=== PATIENT | male | born 1965 | race Two or more races ===

== ENCOUNTER 2017-07-19 15:34 | Emergency (ER) | payer MEDICAID ==
[~2017-07-19] VITALS: Ht 167.6 cm; Wt 50.0 kg
[2017-07-19] MEDS ORDERED: OLAN15TA3 PO (15:49)
[2017-07-19 16:43] LABS: EOSINOPHILS % 2.7 % (0.0-5.0); HEMATOCRIT. 42.9 % (42.0-52.0); HEMOGLOBIN. 14.8 g/dL (14.0-18.0); MEAN CORPUSCULAR HEMOGLOBIN 34.1 pg (28.0-32.0); MEAN CORPUSCULAR VOLUME 98.9 fL (80.0-94.0); MEAN PLATELET VOLUME 7.1 fl (7.4-10.4); MONOCYTES % 7.4 % (2.0-8.0); NEUTROPHILS % 69.9 % (40.0-76.0); PLATELET 367 x1000/uL (130-400); RED BLOOD CELL COUNT 4.34 mill/uL (4.7-6.1); RED CELL DISTRIBUTION WIDTH 13.2 % (11.6-14.6)
[2017-07-19 16:50] LABS: CHLORIDE 105 mEq/L (98-107)
[2017-07-19 16:52] LABS: CARBON DIOXIDE 29 mEq/L (21-32)
[2017-07-19 16:53] LABS: ETHANOL BLOOD < 10 mg/dL
[2017-07-19 17:08] LABS: *AMPHETAMINES SCREEN URINE NEGATIVE (NEGATIVE); *BARBITURATES SCREEN URINE NEGATIVE (NEGATIVE); *BENZODIAZEPINES SCREEN URINE NEGATIVE (NEGATIVE); *COCAINE SCREEN URINE NEGATIVE (NEGATIVE); CANNABINOID URINE SCREEN NEGATIVE (NEGATIVE); METHADONE URINE SCREEN NEGATIVE (NEGATIVE); OPIATES URINE SCREEN NEGATIVE (NEGATIVE); PHENCYCLIDINE URINE SCREEN NEGATIVE (NEGATIVE)
[2017-07-19 17:38] VITALS: BP 128/81
[2017-07-19] MEDS ORDERED: DIPHENHYDRAMINE 25MG CAPSULE PO ONE (19:00)
== END 2017-07-20 07:00 | disposition left against medical advice (07) ==
LOC: ER 15:52
DX: R44.0 Auditory hallucinations (principal)
CPT/HCPCS: 36415; 80048; 80305; 80307; 80329; 85025; 99284; G0482; Q0163

== ENCOUNTER 2017-11-09 18:12 | Emergency (ER) | payer MEDICAID, OTHER ==
[~2017-11-09] VITALS: Ht 165.1 cm; Wt 63.0 kg
[~2017-11-09 18:12] MED LIST: OLAN15TA3 PO
[2017-11-09 21:12] LABS: BASOPHILS % 0.7 % (0.0-2.0); EOSINOPHILS % 3.6 % (0.0-5.0); HEMATOCRIT. 42.3 % (42.0-52.0); HEMOGLOBIN. 14.4 g/dL (14.0-18.0); LYMPHOCYTES % 15.1 % (20.0-50.0); MEAN CORPUSCULAR VOLUME 96.9 fL (80.0-94.0); MEAN PLATELET VOLUME 7.9 fl (7.4-10.4); MONOCYTES % 6.1 % (2.0-8.0); NEUTROPHILS % 74.5 % (40.0-76.0); PLATELET 243 x1000/uL (130-400); RED BLOOD CELL COUNT 4.36 mill/uL (4.7-6.1); RED CELL DISTRIBUTION WIDTH 13.9 % (11.6-14.6)
[2017-11-09 21:24] LABS: CHLORIDE 104 mEq/L (98-107); ETHANOL BLOOD < 10 mg/dL
[2017-11-09 21:32] LABS: CLARITY URINE CLEAR (CLEAR); COLOR URINE YELLOW (YELLOW); KETONES URINE NEGATIVE (NEGATIVE); LEUKOCYTE ESTERASE URINE NEGATIVE (NEGATIVE); NITRITE URINE NEGATIVE (NEGATIVE); OCCULT BLOOD URINE NEGATIVE (NEGATIVE); PROTEIN URINE NEGATIVE (NEGATIVE); UROBILINOGEN URINE 0.2 E.U./dL (0.2-1.0)
[2017-11-09 21:47] LABS: *AMPHETAMINES SCREEN URINE NEGATIVE (NEGATIVE); *BARBITURATES SCREEN URINE NEGATIVE (NEGATIVE); *BENZODIAZEPINES SCREEN URINE NEGATIVE (NEGATIVE); *COCAINE SCREEN URINE NEGATIVE (NEGATIVE); CANNABINOID URINE SCREEN NEGATIVE (NEGATIVE); METHADONE URINE SCREEN NEGATIVE (NEGATIVE); OPIATES URINE SCREEN NEGATIVE (NEGATIVE); PHENCYCLIDINE URINE SCREEN NEGATIVE (NEGATIVE)
[2017-11-10] MEDS ORDERED: OLANZAPINE 10 MG/VIAL IM ONE (05:45)
[2017-11-10] MEDS ORDERED: OLANZAPINE 10MG TABLET PO SCH ×2 (05:45→21:00)
[2017-11-10 13:35] VITALS: BP 117/76
== END 2017-11-10 13:50 | disposition home or self-care (01) ==
LOC: ER 18:12
DX: M25.561 Pain in right knee (principal); M25.562 Pain in left knee; R45.851 Suicidal ideations; F20.9 Schizophrenia, unspecified; F32.9 Major depressive disorder, single episode, unspecified; F17.200 Nicotine dependence, unspecified, uncomplicated; F31.9 Bipolar disorder, unspecified
CPT/HCPCS: 36415; 73562; 80053; 80305; 80307; 80329; 81003; 85025; 99285; G0482

== ENCOUNTER 2017-11-12 09:24 | Emergency (ER) | payer OTHER ==
[~2017-11-12] VITALS: Ht 167.6 cm; Wt 46.0 kg
[2017-11-12 10:43] LABS: BASOPHILS % 0.8 % (0.0-2.0); EOSINOPHILS % 6.8 % (0.0-5.0); HEMATOCRIT. 44.3 % (42.0-52.0); HEMOGLOBIN. 14.8 g/dL (14.0-18.0); LYMPHOCYTES % 21.2 % (20.0-50.0); MEAN CORPUSCULAR HEMOGLOBIN 32.3 pg (28.0-32.0); MEAN CORPUSCULAR VOLUME 96.4 fL (80.0-94.0); MEAN PLATELET VOLUME 8.4 fl (7.4-10.4); MONOCYTES % 7.4 % (2.0-8.0); NEUTROPHILS % 63.8 % (40.0-76.0); PLATELET 225 x1000/uL (130-400); RED CELL DISTRIBUTION WIDTH 13.6 % (11.6-14.6)
[2017-11-12 10:54] LABS: CHLORIDE 103 mEq/L (98-107); ETHANOL BLOOD < 10 mg/dL
[2017-11-12] MEDS: LORAZEPAM 0.5MG TABLET PO ONE (11:30)
[2017-11-12 13:50] VITALS: BP 110/78
[2017-11-12 13:52] LABS: *AMPHETAMINES SCREEN URINE NEGATIVE (NEGATIVE); *BARBITURATES SCREEN URINE NEGATIVE (NEGATIVE); *BENZODIAZEPINES SCREEN URINE PRESUMTIVE POSITIVE (NEGATIVE); *COCAINE SCREEN URINE NEGATIVE (NEGATIVE); CANNABINOID URINE SCREEN NEGATIVE (NEGATIVE); METHADONE URINE SCREEN NEGATIVE (NEGATIVE); OPIATES URINE SCREEN NEGATIVE (NEGATIVE); PHENCYCLIDINE URINE SCREEN NEGATIVE (NEGATIVE)
== END 2017-11-12 14:41 | disposition home or self-care (01) ==
LOC: ER 09:24
DX: Z00.00 Encounter for general adult medical examination without abnormal findings (principal); F20.9 Schizophrenia, unspecified; F32.9 Major depressive disorder, single episode, unspecified; F41.9 Anxiety disorder, unspecified
CPT/HCPCS: 36415; 80048; 80305; 80307; 80329; 85025; 99284; G0482; Z7610